=== PATIENT | female | born 1965 | race Caucasian/White ===

== ENCOUNTER → 2016-07-16 | Outpatient (CLI) | payer MEDICARE, OTHER ==
[~2016-07-16] MED LIST: ALPR0.5T3 PO; DICL50TA3 PO; DIVA250T PO; DIVA500T3 PO; DORZ2SOL15 EACH EYE; DORZO2%O EACH EYE; EXCETAB PO; FIORINAL2 PO; LEVE500T10 PO; LEVE750T8 PO; LEVO.125 PO; OMEP20TA39 PO; SYNT112T PO; TIMO0.5S30 EACH EYE; TOPA25TA8 PO; VALT1TAB26 PO; [UNRECOGNIZED DRUG - CODE] EACH EYE
[2016-07-16 13:35] LABS: AUTOMATED NEUTROPHIL # 2.7 TH/MM3 (1.8-7.7); BASOPHIL % 0.5 % (0.0-2.0); EOSINOPHIL # 0.1 TH/MM3 (0-0.4); HEMATOCRIT 37.6 % (35.0-46.0); HEMO FLAGS DIFF FINAL; LYMPH % 30.9 % (9.0-44.0); LYMPHOCYTE # 1.9 TH/MM3 (1.0-4.8); MEAN CELL VOLUME 87.4 FL (80.0-100.0); MEAN CORPUSCULAR HEMOGLOBIN 28.3 PG (27.0-34.0); MEAN CORPUSCULAR HGB CONC 32.4 % (32.0-36.0); MONO % 21.9 % (0.0-8.0); NEUT % 44.7 % (16.0-70.0); PLATELET COUNT 134 TH/MM3 (150-450); WHITE BLOOD COUNT 6.1 TH/MM3 (4.0-11.0)
[2016-07-16 13:46] LABS: ALKALINE PHOSPHATASE 96 U/L (45-117); ALT (GPT) 16 U/L (10-53); ANION GAP 6 MEQ/L (5-15); AST (GOT) 24 U/L (15-37); BICARBONATE 26.3 MEQ/L (21.0-32.0); BLOOD UREA NITROGEN 17 MG/DL (7-18); CHLORIDE 108 MEQ/L (98-107); GLOMERULAR FILTRATION RATE 61 ML/MIN (>89); POTASSIUM 4.7 MEQ/L (3.5-5.1); SODIUM (NA) 140 MEQ/L (136-145); TOTAL BILIRUBIN ADULT 0.2 MG/DL (0.2-1.0)
== END ==
LOC: PLAB 10:16
PROVIDERS: ATTEND Specialist
DX: R53.83 Other fatigue (principal); E89.89 Other postprocedural endocrine and metabolic complications and disorders; Z51.81 Encounter for therapeutic drug level monitoring
CPT/HCPCS: 36415; 80053; 80164; 80177; 85025

== ENCOUNTER → 2016-08-10 | Outpatient (CLI) | payer MEDICARE, OTHER ==
[2016-08-10 16:11] LABS: AUTOMATED NEUTROPHIL # 4.1 TH/MM3 (1.8-7.7); BASOPHIL % 0.4 % (0.0-2.0); EOSINOPHIL # 0.1 TH/MM3 (0-0.4); EOSINOPHIL % 1.2 % (0.0-4.0); HEMATOCRIT 37.9 % (35.0-46.0); LYMPH % 25.7 % (9.0-44.0); LYMPHOCYTE # 1.8 TH/MM3 (1.0-4.8); MEAN CELL VOLUME 85.4 FL (80.0-100.0); MEAN CORPUSCULAR HEMOGLOBIN 28.8 PG (27.0-34.0); MEAN CORPUSCULAR HGB CONC 33.7 % (32.0-36.0); MONO % 14.9 % (0.0-8.0); NEUT % 57.8 % (16.0-70.0); PLATELET COUNT 161 TH/MM3 (150-450); RED BLOOD COUNT 4.44 MIL/MM3 (4.00-5.30); RED CELL DISTRIBUTION WIDTH 14.7 % (11.6-17.2); WHITE BLOOD COUNT 7.1 TH/MM3 (4.0-11.0)
[2016-08-10 16:22] LABS: ALKALINE PHOSPHATASE 110 U/L (45-117); ALT (GPT) 17 U/L (10-53); ANION GAP 6 MEQ/L (5-15); AST (GOT) 27 U/L (15-37); BICARBONATE 28.6 MEQ/L (21.0-32.0); BLOOD UREA NITROGEN 14 MG/DL (7-18); CHLORIDE 104 MEQ/L (98-107); GLOMERULAR FILTRATION RATE 63 ML/MIN (>89); SODIUM (NA) 139 MEQ/L (136-145); TOTAL BILIRUBIN ADULT 0.3 MG/DL (0.2-1.0)
[2016-08-10 16:28] LABS: HEMO FLAGS AUTO DIFF
[2016-08-10 16:30] LABS: FREE T4 1.34 NG/DL (0.76-1.46)
[2016-08-10 17:01] LABS: PLATELET ESTIMATE SMEAR LOW (NORMAL); PLATELET MORPHOLOGY NORMAL (NORMAL)
[2016-08-10 17:03] LABS: HEMOGLOBIN A1b 1.6 %; HEMOGLOBIN Ao 84.3 %; HEMOGLOBIN LA1C 2.1 %; HEMOGLOBIN P3 5.9 %
[2016-08-10 19:44] LABS: SCAN/DIFF AUTO DIFF CONFIRMED
== END ==
LOC: PLAB 10:49
PROVIDERS: ATTEND Specialist
DX: E03.9 Hypothyroidism, unspecified (principal); R73.01 Impaired fasting glucose; G40.009 Localization-related (focal) (partial) idiopathic epilepsy and epileptic syndromes with seizures of localized onset, not intractable, without status epilepticus; R78.9 Finding of unspecified substance, not normally found in blood; M31.6 Other giant cell arteritis; Z51.81 Encounter for therapeutic drug level monitoring
CPT/HCPCS: 36415; 80053; 80164; 83036; 84439; 84443; 85025

== ENCOUNTER → 2016-08-20 | Outpatient (CLI) | payer MEDICARE, OTHER | LOC: PLAB 09:47 | PROVIDERS: ATTEND Specialist | DX: Z51.81 Encounter for therapeutic drug level monitoring (principal) | CPT/HCPCS: 36415; 80164; 82140 ==

== ENCOUNTER → 2016-09-21 | Outpatient (CLI) | payer MEDICARE, OTHER ==
--- NOTE | 2016-09-21 15:06 | RADRPT ---
EXAM DATE/TIME: 09/21/2016 13:33 [facility] COMPARISON: CT BRAIN W/O CONTRAST, October 08, 2014, 17:49. INDICATIONS : Tremors in left arm and leg. DOSE: 5.2 mCi Ioflupane Iodine-123 in 2.5 ml total volume MEDICATION(S): 130 mg Potasium Iodine PO one hour prior to injection SPECT IMAGIN.5 hours. IMAGNG: SPECT/CT imaging with fusion was performed. RADIATION DOSE: 30.27 CTDIvol (mGy) MEDICAL HISTORY : Seizures. SURGICAL HISTORY : Appendectomy. Cholecystectomy. Tubal ligation. Heart valve repair. ENCOUNTER: Initial ACUITY: 4 - 6 months PAIN SCALE: 0/10 LOCATION: Head. TECHNIQUE: SPECT imaging of the brain was performed in sagittal, axial and coronal planes. Attenuation correctio n was performed with computed tomography and both the attenuation correction and non-attenuation florencia ected data sets were reviewed. FINDINGS: There is normal biodistribution of radionuclide with symmetric crescent-shaped areas of activity are in the striatum which appears distinct relative to the surrounding brain tissue. 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 Configuration is is similar when compared to prior CT 10/08/14, but the enlargement of the left lateral ventricle is slightly greater. CONCLUSION: Symmetric striatal uptake of radiotracer. Venu Alejandre MD on September 21, 2016 at 14:59 Board Certified Radiologist. This report was verified electronically.
== END ==
LOC: HRAD 08:48
PROVIDERS: ATTEND Specialist
DX: R25.1 Tremor, unspecified (principal)
CPT/HCPCS: 78607; A9584

== ENCOUNTER → 2016-09-24 | Outpatient (CLI) | payer MEDICARE, OTHER ==
[2016-09-24 13:20] LABS: AUTOMATED NEUTROPHIL # 3.2 TH/MM3 (1.8-7.7); BASOPHIL % 0.6 % (0.0-2.0); EOSINOPHIL # 0.1 TH/MM3 (0-0.4); EOSINOPHIL % 1.8 % (0.0-4.0); HEMATOCRIT 36.3 % (35.0-46.0); HEMO FLAGS DIFF FINAL; LYMPH % 31.6 % (9.0-44.0); MEAN CELL VOLUME 85.2 FL (80.0-100.0); MEAN CORPUSCULAR HEMOGLOBIN 27.3 PG (27.0-34.0); MEAN CORPUSCULAR HGB CONC 32.1 % (32.0-36.0); MONO % 14.7 % (0.0-8.0); NEUT % 51.3 % (16.0-70.0); PLATELET COUNT 160 TH/MM3 (150-450); RED BLOOD COUNT 4.27 MIL/MM3 (4.00-5.30); RED CELL DISTRIBUTION WIDTH 14.7 % (11.6-17.2); WHITE BLOOD COUNT 6.2 TH/MM3 (4.0-11.0)
[2016-09-24 13:48] LABS: ALT (GPT) 11 U/L (10-53); ANION GAP 7 MEQ/L (5-15); AST (GOT) 19 U/L (15-37); BICARBONATE 26.4 MEQ/L (21.0-32.0); BLOOD UREA NITROGEN 24 MG/DL (7-18); CHLORIDE 106 MEQ/L (98-107); GLOMERULAR FILTRATION RATE 74 ML/MIN (>89); GLUCOSE,FASTING 89 MG/DL (74-99); POTASSIUM 4.2 MEQ/L (3.5-5.1); SODIUM (NA) 139 MEQ/L (136-145)
[2016-09-24 13:57] LABS: ALKALINE PHOSPHATASE 100 U/L (45-117); FREE T4 1.19 NG/DL (0.76-1.46); INDIRECT BILIRUBIN 0.1 MG/DL (0.0-0.8); LDL CHOLESTEROL 63 MG/DL (0-99); TOTAL BILIRUBIN ADULT 0.2 MG/DL (0.2-1.0)
[2016-09-24 14:28] LABS: HEMOGLOBIN A1a 1.2 %; HEMOGLOBIN Ao 83.6 %; HEMOGLOBIN LA1C 2.1 %; HEMOGLOBIN P3 4.4 %
== END ==
LOC: PLAB 09:27
PROVIDERS: ATTEND Internal Medicine Cardiovascular Disease
DX: I51.7 Cardiomegaly (principal); R07.2 Precordial pain; E78.2 Mixed hyperlipidemia; E10.9 Type 1 diabetes mellitus without complications; Z79.899 Other long term (current) drug therapy; R73.01 Impaired fasting glucose
CPT/HCPCS: 36415; 80048; 80061; 80076; 83036; 84439; 84443; 84480; 85025

== ENCOUNTER 2016-10-11 14:15 | Emergency (ER) | payer MEDICARE, OTHER ==
[~2016-10-11] VITALS: Ht 165.1 cm; Wt 111.0 kg
[~2016-10-11 14:15] MED LIST changes: -DIVA500T3 PO; -DORZ2SOL15 EACH EYE; -LEVE750T8 PO; -SYNT112T PO; -TIMO0.5S30 EACH EYE
[2016-10-11 14:19] VITALS: BP 134/93; PULSE 96; RESP 16; TEMP 98.3; O2SAT 98
--- NOTE | 2016-10-11 14:41 | PD ---
HPI Chief Complaint: Head Injury Time Seen by Provider: 14:28 Travel History International Travel<30 days: No Contact w/Intl Traveler<30days: No Traveled to known affect area: No History of Present Illness HPI 51-year-old female states she was taking a shower when she hit her head against one of the knobs and is been having a persistent headache since yesterday when she did this. She is concerned she has a brain cyst in that area. She denies any increase in seizure activity or other complaints. She had no loss of consciousness. She is not on blood thinners. She follows regularly with her neurologist Dr. Re[facility] Past Medical History Hx Anticoagulant Therapy: Yes (BABY ASA DAILY) Arthritis: Yes Asthma: No Anxiety: Yes Heart Rhythm Problems: No Cancer: No Cardiovascular Problems: Yes (CHOL) Cerebral Palsy: Yes (LEFT SIDE WEAKNESS ) High Cholesterol: No Chemotherapy: No Congestive Heart Failure: No Cerebrovascular Accident: Yes (CVA'S TIMES 2) Diabetes: No Dialysis: No Diminished Hearing: No Endocrine: Yes Gastrointestinal Disorders: Yes (GERD) GERD: Yes Glaucoma: Yes (WIDE ANGLE) Genitourinary: No Hepatitis: No Hiatal Hernia: No Hypertension: Yes Immune Disorder: No Musculoskeletal: Yes (ARTHRITIS; BACK AND NECK PAIN ; CELEBRAL PALSY) Neurologic: Yes (SEIZURES) Psychiatric: Yes Reproductive: Yes (IRREGULAR MENSTRUATION; MUCOUS POLYP CERVIX) Respiratory: Yes (SLEEP APNEA) Immunizations Current: No Migraines: Yes Myocardial Infarction: No Radiation Therapy: No Seizures: Yes Sleep Apnea: Yes (CPAP AT BEDTIME) Thyroid Disease: Yes (HYPOTHYROID) ?: Not Menopausal: No : 1 Para: 1 Tubal Ligation: Yes Past Surgical History Abdominal Surgery: Yes (LAP ADNIEL) Appendectomy: Yes Body Medical Devices: NONE Cardiac Surgery: Yes (REPAIR HEART VALVE AN INFANT) Cholecystectomy: Yes Coronary Artery Bypass Graft: No Gynecologic Surgery: Yes (d/c 3 days ago) Joint Replacement: No Neurologic Surgery: Yes (LUMBAR LAMINECTOMY) Pacemaker: No Other Surgery: Yes Social History Alcohol Use: No Tobacco Use: No Substance Use: No Allergies-Medications (Allergen,Severity, Reaction): Coded Allergies: Latex (Verified Allergy, Severe, Rash, 10/11/16) INTERMEDIATE REACTION Lisinopril (Verified Allergy, Severe, Rash, 10/11/16) PT STATES MILD REACTION Tramadol (Verified Allergy, Severe, Seizures, 10/11/16) Lortab (Verified Allergy, Intermediate, Rash, 10/11/16) Sulfa (Verified Allergy, Intermediate, Rash, 10/11/16) Contrast Media (Verified Allergy, Mild, Rash,REDNESS TO FACE, ITCH, 10/11/16 ) Morphine (Unverified Allergy, Unknown, 10/11/16) Reported Meds & Prescriptions Reported Meds & Active Scripts Active Reported Divalproex ER (Divalproex Sodium) 500 Mg Tab 500 Mg PO HS Divalproex ER (Divalproex Sodium) 500 Mg Tab 500 Mg PO DAILY Levetiracetam 750 Mg Tab 750 Mg PO BID Alprazolam 0.5 Mg Tab 0.5 Mg PO Q12HR PRN Fiorinal (Butalbital/Aspirin/Caffeine) 50-325-40 Mg Cap 1 Cap PO Q6HR PRN Do not exceed 6 capsules/day. Timolol Opth Drops 0.5 % Soln 1 Drop EACH EYE BID Dorzolamide-Timolol Opth Drops 22.3-6.8 Mg/Ml Soln 1 Drop EACH EYE BID Synthroid (Levothyroxine Sodium) 112 Mcg Tab 112 Mcg PO DAILY Review of Systems Except as stated in HPI: all other systems reviewed are Neg Physical Exam Narrative GENERAL: Pleasant female patient. SKIN: Warm and dry. HEAD: No significant hematoma or laceration noted EYES: No injection or drainage. ENT: No nasal drainage noted. NECK: Supple, trachea midline. Nontender in midline CARDIOVASCULAR: Regular rate and rhythm RESPIRATORY: Breath sounds equal bilaterally at apices. No accessory muscle use. GASTROINTESTINAL: Abdomen soft, non-tender, nondistended. EXTREMITIES: No pain over main joints NEUROLOGICAL: Awake and alert. Motor and sensory grossly within normal limits. Data Data Last Documented VS Vital Signs Date Time Temp Pulse Resp B/P Pulse Ox O2 Delivery O2 Flow Rate FiO2 10/11/16 15:30 72 16 130/76 97 10/11/16 14:56 Room Air 10/11/16 14:[address] Brain W/O Iv Contrast(Rout) (10/11/16 ) MDM Medical Decision Making Medical Screen Exam Complete: Yes Emergency Medical Condition: Yes Medical Record Reviewed: Yes (past history confirmed) Interpretation(s) ct head stable without acute injury Differential Diagnosis Contusion, bleed, strain... Narrative Course will check ct head and reeval ed workup no acute, Patient denies any new complaints, all questions answered. Patient and family know that follow up is incumbent on them and to return to the emergency room immediately if new or worsening symptoms develop. Patient and family given strict return precautions, vitals reviewed and are normal, agrees to further workup as an outpatient. Diagnosis Primary Impression: Closed head injury Qualified Code: S09.90XA - Closed head injury, initial encounter Patient Instructions: General Instructions Additional Instructions: return as needed, follow with primary this week for recheck Med/Other Pt SpecificInfo: No Change to Meds Disposition: 01 DISCHARGE HOME Condition: Stable Kamille Kaiser MD October 11, 2016 14:41
[2016-10-11] MEDS ORDERED: DIVA500T3 PO ×2 (14:54)
[2016-10-11] MEDS ORDERED: ALPR0.5T3 PO (14:54)
[2016-10-11] MEDS ORDERED: LEVE750T8 PO (14:54)
[2016-10-11] MEDS ORDERED: DORZ2SOL15 EACH EYE (14:54)
[2016-10-11] MEDS ORDERED: SYNT112T PO (14:54)
[2016-10-11] MEDS ORDERED: FIORINAL2 PO (14:54)
[2016-10-11] MEDS ORDERED: TIMO0.5S30 EACH EYE (14:54)
--- NOTE | 2016-10-11 15:04 | RADHPO ---
EXAM DATE/TIME: 10/11/2016 14:45 [facility] COMPARISON: CT BRAIN W/O CONTRAST, October 08, 2014, 17:49. INDICATIONS : Fell last night. Hit head. RADIATION DOSE: 64.66 CTDIvol (mGy) MEDICAL HISTORY : Cerebrovascular disease. Seizures. Cardiovascular disease. Anticoagulant therapy. Hypertension. SURGICAL HISTORY : Heart valve replacement. ENCOUNTER: Initial ACUITY: 2 days PAIN SCALE: 0/10 LOCATION: Cranial TECHNIQUE: Multiple contiguous axial images were obtained of the head. Using automated exposure control and adj ustment of the mA and/or kV according to patient size, radiation dose was kept as low as reasonably a chievable to obtain optimal diagnostic quality images. FINDINGS: There is a porencephalic cleft in the left orbital frontal region with dilatation of the left lateral ventricle. The right hemisphere is unremarkable. Posterior fossa appears normal. 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 Aurelio Loaiza MD FACR on October 11, 2016 at 14:58 Board Certified Radiologist. This report was verified electronically.
[2016-10-11 15:30] VITALS: BP 130/76
== END 2016-10-11 15:20 | disposition home or self-care (01) ==
LOC: PHED 14:15
DX: S09.90XA Unspecified injury of head, initial encounter (principal); W22.09XA Striking against other stationary object, initial encounter; Y93.E1 Activity, personal bathing and showering
CPT/HCPCS: 70450

== ENCOUNTER → 2016-11-19 | Outpatient (CLI) | payer MEDICARE, OTHER ==
[~2016-11-19] MED LIST changes: -DICL50TA3 PO; -DIVA250T PO; +DIVA500T3 PO; +DORZ2SOL15 EACH EYE; -DORZO2%O EACH EYE; -EXCETAB PO; -LEVE500T10 PO; +LEVE750T8 PO; -LEVO.125 PO; -OMEP20TA39 PO; +SYNT112T PO; +TIMO0.5S30 EACH EYE; -TOPA25TA8 PO; -VALT1TAB26 PO; -[UNRECOGNIZED DRUG - CODE] EACH EYE
[2016-11-19 13:24] LABS: AUTOMATED NEUTROPHIL # 3.7 TH/MM3 (1.8-7.7); BASOPHIL % 0.5 % (0.0-2.0); EOSINOPHIL # 0.1 TH/MM3 (0-0.4); HEMATOCRIT 36.2 % (35.0-46.0); HEMO FLAGS DIFF FINAL; LYMPH % 29.4 % (9.0-44.0); MEAN CELL VOLUME 82.9 FL (80.0-100.0); MEAN CORPUSCULAR HEMOGLOBIN 26.4 PG (27.0-34.0); MEAN CORPUSCULAR HGB CONC 31.8 % (32.0-36.0); MONO % 13.7 % (0.0-8.0); NEUT % 54.4 % (16.0-70.0); PLATELET COUNT 217 TH/MM3 (150-450); RED BLOOD COUNT 4.37 MIL/MM3 (4.00-5.30); RED CELL DISTRIBUTION WIDTH 15.3 % (11.6-17.2); WHITE BLOOD COUNT 6.8 TH/MM3 (4.0-11.0)
[2016-11-19 13:36] LABS: ANION GAP 6 MEQ/L (5-15); AST (GOT) 18 U/L (15-37); BICARBONATE 26.9 MEQ/L (21.0-32.0); BLOOD UREA NITROGEN 20 MG/DL (7-18); CHLORIDE 108 MEQ/L (98-107); GLOMERULAR FILTRATION RATE 81 ML/MIN (>89); GLUCOSE,FASTING 87 MG/DL (74-99); POTASSIUM 4.5 MEQ/L (3.5-5.1); SODIUM (NA) 141 MEQ/L (136-145)
[2016-11-19 13:43] LABS: ALKALINE PHOSPHATASE 101 U/L (45-117); ALT (GPT) 14 U/L (10-53); TOTAL BILIRUBIN ADULT 0.2 MG/DL (0.2-1.0)
[2016-11-19 13:49] LABS: FREE T4 1.15 NG/DL (0.76-1.46)
== END ==
LOC: PLAB 09:31
PROVIDERS: ATTEND Specialist
DX: G93.3 Postviral and related fatigue syndromes (principal); E03.9 Hypothyroidism, unspecified; G40.009 Localization-related (focal) (partial) idiopathic epilepsy and epileptic syndromes with seizures of localized onset, not intractable, without status epilepticus; M31.6 Other giant cell arteritis; Z51.81 Encounter for therapeutic drug level monitoring
CPT/HCPCS: 36415; 80053; 80164; 80177; 84439; 84443; 85025

== ENCOUNTER → 2017-01-04 | Outpatient (CLI) | payer MEDICARE, OTHER ==
[2017-01-04 16:40] LABS: AUTOMATED NEUTROPHIL # 4.1 TH/MM3 (1.8-7.7); BASOPHIL % 0.5 % (0.0-2.0); EOSINOPHIL # 0.1 TH/MM3 (0-0.4); EOSINOPHIL % 1.6 % (0.0-4.0); HEMATOCRIT 36.6 % (35.0-46.0); HEMO FLAGS DIFF FINAL; LYMPH % 28.3 % (9.0-44.0); LYMPHOCYTE # 2.1 TH/MM3 (1.0-4.8); MEAN CELL VOLUME 80.7 FL (80.0-100.0); MEAN CORPUSCULAR HEMOGLOBIN 25.9 PG (27.0-34.0); MEAN CORPUSCULAR HGB CONC 32.1 % (32.0-36.0); MONO % 15.6 % (0.0-8.0); PLATELET COUNT 174 TH/MM3 (150-450); RED BLOOD COUNT 4.54 MIL/MM3 (4.00-5.30); RED CELL DISTRIBUTION WIDTH 15.9 % (11.6-17.2); WHITE BLOOD COUNT 7.5 TH/MM3 (4.0-11.0)
[2017-01-04 17:05] LABS: ANION GAP 8 MEQ/L (5-15); AST (GOT) 12 U/L (15-37); BICARBONATE 22.7 MEQ/L (21.0-32.0); BLOOD UREA NITROGEN 16 MG/DL (7-18); CHLORIDE 107 MEQ/L (98-107); GLOMERULAR FILTRATION RATE 78 ML/MIN (>89); POTASSIUM 4.3 MEQ/L (3.5-5.1); SODIUM (NA) 138 MEQ/L (136-145)
[2017-01-04 17:12] LABS: ALKALINE PHOSPHATASE 88 U/L (45-117); ALT (GPT) 11 U/L (10-53); TOTAL BILIRUBIN ADULT 0.3 MG/DL (0.2-1.0)
== END ==
LOC: PLAB 12:36
PROVIDERS: ATTEND Specialist
DX: E89.89 Other postprocedural endocrine and metabolic complications and disorders (principal); G40.009 Localization-related (focal) (partial) idiopathic epilepsy and epileptic syndromes with seizures of localized onset, not intractable, without status epilepticus; R53.83 Other fatigue; Z51.81 Encounter for therapeutic drug level monitoring
CPT/HCPCS: 36415; 80053; 80164; 80177; 82140; 85025

== ENCOUNTER → 2017-03-08 | Outpatient (CLI) | payer MEDICARE, OTHER ==
[2017-03-08 13:12] LABS: AUTOMATED NEUTROPHIL # 3.4 TH/MM3 (1.8-7.7); BASOPHIL % 0.4 % (0.0-2.0); EOSINOPHIL # 0.1 TH/MM3 (0-0.4); EOSINOPHIL % 1.2 % (0.0-4.0); HEMATOCRIT 34.8 % (35.0-46.0); HEMO FLAGS DIFF FINAL; LYMPH % 27.5 % (9.0-44.0); LYMPHOCYTE # 1.7 TH/MM3 (1.0-4.8); MEAN CELL VOLUME 78.8 FL (80.0-100.0); MEAN CORPUSCULAR HEMOGLOBIN 25.2 PG (27.0-34.0); MONO % 16.3 % (0.0-8.0); NEUT % 54.6 % (16.0-70.0); PLATELET COUNT 204 TH/MM3 (150-450); RED BLOOD COUNT 4.41 MIL/MM3 (4.00-5.30); RED CELL DISTRIBUTION WIDTH 16.5 % (11.6-17.2); WHITE BLOOD COUNT 6.2 TH/MM3 (4.0-11.0)
[2017-03-08 13:39] LABS: ANION GAP 7 MEQ/L (5-15); AST (GOT) 13 U/L (15-37); BICARBONATE 25.2 MEQ/L (21.0-32.0); BLOOD UREA NITROGEN 17 MG/DL (7-18); CHLORIDE 108 MEQ/L (98-107); GLOMERULAR FILTRATION RATE 75 ML/MIN (>89); GLUCOSE,FASTING 100 MG/DL (74-99); POTASSIUM 4.3 MEQ/L (3.5-5.1); SODIUM (NA) 140 MEQ/L (136-145)
[2017-03-08 13:49] LABS: ALKALINE PHOSPHATASE 106 U/L (45-117); ALT (GPT) 11 U/L (10-53); FREE T4 1.17 NG/DL (0.76-1.46); HDL CHOLESTEROL 48.7 MG/DL (40.0-60.0); INDIRECT BILIRUBIN 0.1 MG/DL (0.0-0.8); LDL CHOLESTEROL 49 MG/DL (0-99); TOTAL BILIRUBIN ADULT 0.2 MG/DL (0.2-1.0)
[2017-03-08 16:59] LABS: HEMOGLOBIN A1a 1.1 %; HEMOGLOBIN Ao 83.2 %; HEMOGLOBIN LA1C 2.2 %
== END ==
LOC: PLAB 08:51
PROVIDERS: ATTEND Internal Medicine Cardiovascular Disease
DX: R73.01 Impaired fasting glucose (principal); I10 Essential (primary) hypertension; E78.2 Mixed hyperlipidemia; I51.7 Cardiomegaly; R60.0 Localized edema; E03.9 Hypothyroidism, unspecified; Z79.899 Other long term (current) drug therapy
CPT/HCPCS: 36415; 80048; 80061; 80076; 83036; 84439; 84443; 84480; 85025

== ENCOUNTER → 2017-05-03 | Outpatient (CLI) | payer MEDICARE, OTHER ==
[2017-05-03 09:37] LABS: AUTOMATED NEUTROPHIL # 3.4 TH/MM3 (1.8-7.7); BASOPHIL # 0.1 TH/MM3 (0-0.2); BASOPHIL % 0.7 % (0.0-2.0); EOSINOPHIL # 0.2 TH/MM3 (0-0.4); EOSINOPHIL % 2.4 % (0.0-4.0); HEMATOCRIT 34.2 % (35.0-46.0); HEMO FLAGS AUTO DIFF; LYMPH % 33.6 % (9.0-44.0); LYMPHOCYTE # 2.4 TH/MM3 (1.0-4.8); MEAN CELL VOLUME 77.5 FL (80.0-100.0); MEAN CORPUSCULAR HEMOGLOBIN 24.8 PG (27.0-34.0); MONO % 15.8 % (0.0-8.0); NEUT % 47.5 % (16.0-70.0); PLATELET COUNT 187 TH/MM3 (150-450); RED BLOOD COUNT 4.41 MIL/MM3 (4.00-5.30); RED CELL DISTRIBUTION WIDTH 17.3 % (11.6-17.2); WHITE BLOOD COUNT 7.2 TH/MM3 (4.0-11.0)
[2017-05-03 10:07] LABS: ANION GAP 8 MEQ/L (5-15); AST (GOT) 16 U/L (15-37); BICARBONATE 21.7 MEQ/L (21.0-32.0); BLOOD UREA NITROGEN 21 MG/DL (7-18); CHLORIDE 108 MEQ/L (98-107); GLOMERULAR FILTRATION RATE 78 ML/MIN (>89); GLUCOSE,FASTING 100 MG/DL (74-99); POTASSIUM 4.1 MEQ/L (3.5-5.1); SODIUM (NA) 138 MEQ/L (136-145)
[2017-05-03 10:08] LABS: ALT (GPT) 9 U/L (10-53)
[2017-05-03 10:24] LABS: OVALOCYTES 1+ (NORMAL)
[2017-05-03 10:26] LABS: PLATELET ESTIMATE SMEAR NORMAL (NORMAL); PLATELET MORPHOLOGY NORMAL (NORMAL); SCAN/DIFF AUTO DIFF CONFIRMED; TOXIC VACUOLATION PRESENT (NONE SEEN)
[2017-05-03 10:33] LABS: ALKALINE PHOSPHATASE 88 U/L (45-117); FREE T4 1.09 NG/DL (0.76-1.46); TOTAL BILIRUBIN ADULT 0.2 MG/DL (0.2-1.0)
[2017-05-03 16:45] LABS: HEMOGLOBIN A1a 1.2 %; HEMOGLOBIN A1b 1.8 %; HEMOGLOBIN Ao 82.9 %; HEMOGLOBIN LA1C 2.2 %; HEMOGLOBIN P3 4.6 %
[2017-05-07 11:51] LABS: VITAMIN B6 LESS THAN 2.0 ng/mL (2.1-21.7)
== END ==
LOC: PLAB 07:52
PROVIDERS: ATTEND Internal Medicine Cardiovascular Disease
DX: R73.01 Impaired fasting glucose (principal); R06.02 Shortness of breath; R60.0 Localized edema; G40.009 Localization-related (focal) (partial) idiopathic epilepsy and epileptic syndromes with seizures of localized onset, not intractable, without status epilepticus; G31.84 Mild cognitive impairment of uncertain or unknown etiology; G93.3 Postviral and related fatigue syndromes; M31.6 Other giant cell arteritis; E53.9 Vitamin B deficiency, unspecified; R94.6 Abnormal results of thyroid function studies; Z51.81 Encounter for therapeutic drug level monitoring
CPT/HCPCS: 36415; 80053; 80164; 82607; 83036; 84207; 84425; 84439; 84443; 85025